=== PATIENT | male | born 1960 | race Caucasian/White ===

== ENCOUNTER 2022-03-03 11:53 | Emergency (ER) | payer OTHER ==
[2022-03-03 12:05] VITALS: BP 113/79; PULSE 18; TEMP 98.6; BMI 25.0
[2022-03-03] MEDS ORDERED: LIDOCAINE 5% TOPICAL PATCH TP ONE (12:59)
[2022-03-03] MEDS ORDERED: CYCLOBENZAPRINE HCL 10 MG TABLET (FP) PO ONE (12:59)
[2022-03-03] MEDS ORDERED: CYCLOBENZAPRINE HCL 10 MG TABLET (FP) ONE (13:00)
[2022-03-03] MEDS ORDERED: LIDOCAINE 5% TOPICAL PATCH ONE (13:00)
[2022-03-03] MEDS ORDERED: LIDOCAINE PATCH REMOVAL MC SCH (22:00)
== END 2022-03-03 13:25 | disposition home or self-care (01) ==
LOC: JERFT 11:53
DX: S46.211A Strain of muscle, fascia and tendon of other parts of biceps, right arm, initial encounter (principal); X50.0XXA Overexertion from strenuous movement or load, initial encounter
CPT/HCPCS: 73030-TC-RT-FY; 73060-TC-RT-FY; 99283-25

== ENCOUNTER 2022-04-08 04:39 | Day surgery (SDC) | payer OTHER ==
[2022-04-02 15:19] VITALS: BMI 23.9
[2022-04-08 12:32] VITALS: TEMP 98.1
[2022-04-08 13:09] VITALS: BP 129/81; PULSE 63
== END 2022-04-08 13:28 | disposition home or self-care (01) ==
LOC: JASU-ENDO 04:39
PROVIDERS: ATTEND Internal Medicine Gastroenterology
PROC: 0DJD8ZZ Inspection of Lower Intestinal Tract, Via Natural or Artificial Opening Endoscopic (ICD-10-PCS; principal; 2022-04-08 12:30)
DX: Z12.11 Encounter for screening for malignant neoplasm of colon (principal)